=== PATIENT | male | born 1950 | race Caucasian/White ===

== ENCOUNTER → 2017-09-07 | Outpatient (CLI) | payer BC ==
[~2017-09-07] MED LIST: GADOBUTROL 10 ML VIAL IVP ONE
== END ==
LOC: FIMAGING 07:13
PROVIDERS: ATTEND Internal Medicine Infectious Disease
DX: M00.9 Pyogenic arthritis, unspecified (principal); M76.891 Other specified enthesopathies of right lower limb, excluding foot; M24.151 Other articular cartilage disorders, right hip
CPT/HCPCS: A9585

== ENCOUNTER → 2017-10-14 | Outpatient (CLI) | payer BC | LOC: FIMAGING 10:19 | PROVIDERS: ATTEND Orthopaedic Surgery | DX: M54.16 Radiculopathy, lumbar region (principal); M51.36 Other intervertebral disc degeneration, lumbar region ==

== ENCOUNTER 2017-11-12 14:01 | Day surgery (SDC) | payer BC ==
[2017-11-12] MEDS ORDERED: LIDOCAINE 1% 300 MG/30 ML SDV ONE (15:27)
[2017-11-12] MEDS ORDERED: TRIAMCINOLONE ACETONIDE 200 MG/5 ML MDV IM ONE (15:27)
== END 2017-11-12 16:00 | disposition home or self-care (01) ==
LOC: FIMAGING 14:01
PROVIDERS: ATTEND Orthopaedic Surgery
PROC: 3E0S33Z Introduction of Anti-inflammatory into Epidural Space, Percutaneous Approach (ICD-10-PCS; principal; 2017-11-12)
PROC: 3E0S3BZ Introduction of Anesthetic Agent into Epidural Space, Percutaneous Approach (ICD-10-PCS; principal; 2017-11-12)
DX: M54.16 Radiculopathy, lumbar region (principal)
CPT/HCPCS: J3301

== ENCOUNTER 2019-02-10 13:55 | Emergency (ER) | payer BC ==
[2019-02-10] MEDS ORDERED: NS 1,000 ML IV ONE (14:39)
[2019-02-10] MEDS ORDERED: HYDROmorphONE/DILAUDID 2 MG/ML INJ IVP ONE (14:39)
[2019-02-10] MEDS ORDERED: ONDANSETRON 4 MG/2 ML VIAL IVP ONE (14:39)
--- NOTE | 2019-02-10 14:45 | EDPHY ---
H & P Stated Complaint: Bilat groin pn yest AM, exac umb hernia, poss bowel obstr per PCP Time Seen by Provider: 02/10/19 14:35 HPI/ROS: CHIEF COMPLAINT: Abdominal pain and distension HISTORY OF PRESENT ILLNESS: The patient is a 68-year-old man who comes to the emergency department complaining of abdominal pain and distension that began yesterday. He has had gradually increasing pain and distention. He has a history of prostate cancer with radical prostatectomy several years ago. 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 He has not had a fever. He did vomit once yesterday. He states he has not been able to have a bowel movement but was able to force a small amount of stool out today around noon. No history of similar symptoms. He states that he does think he has been passing a small amount of gas. No history of liver renal disease. Severity: Moderate Modifying factors: None REVIEW OF SYSTEMS: Constitutional: denies: chills, fever, recent illness, recent injury EENTM: denies: blurred vision, double vision, nose congestion Respiratory: denies: cough, shortness of breath Cardiac: denies: chest pain, irregular heart rate, lightheadedness, palpitations Gastrointestinal/Abdominal: denies: abdominal pain, diarrhea, nausea, vomiting, blood streaked stools Genitourinary: See HPI Musculoskeletal: denies: joint pain, muscle pain Skin: denies: lesions, rash, jaundice, bruising Neurological: denies: headache, numbness, paresthesia, tingling, dizziness, weakness Hematologic/Lymphatic: denies: blood clots, easy bleeding, easy bruising Immunologic/allergic: denies: HIV/AIDS, transplant 10 systems reviewed and negative except as noted EXAM: GENERAL: Well-appearing, well-nourished and in no acute distress. HEAD: Atraumatic, normocephalic. EYES: Pupils equal round and reactive to light, extraocular movements intact, sclera anicteric, conjunctiva are normal. ENT: TMs normal, nares patent, oropharynx clear without exudates. Moist mucous membranes. NECK: Normal range of motion, supple without lymphadenopathy or JVD. LUNGS: Breath sounds clear to auscultation bilaterally and equal. No wheezes rales or rhonchi. HEART: Regular rate and rhythm without murmurs, rubs or gallops. ABDOMEN: Distended, umbilical hernia nontender. No erythema. BACK: No CVA tenderness, no spinal tenderness, step-offs or deformities EXTREMITIES: Normal range of motion, no pitting or edema. No clubbing or cyanosis. NEUROLOGICAL: Cranial nerves II through XII grossly intact. Normal speech, normal gait. 5/5 strength, normal movement in all extremities, normal sensation , normal reflexes PSYCH: Normal mood, normal affect. SKIN: Warm, dry, normal turgor, no visible rashes or lesions. Source: Patient - Personal History Current Tetanus/Diphtheria Vaccine: Unsure - Medical/Surgical History Hx Asthma: No Hx Chronic Respiratory Disease: No Hx Diabetes: No Hx Cardiac Disease: No Hx Renal Disease: No Hx Cirrhosis: No Hx Alcoholism: No Hx HIV/AIDS: No Hx Splenectomy or Spleen Trauma: No Other PMH: Juanita Cell cancer rt uttocks, strep infection in R hip with multiple I&D's, radical prostatectomy, CAD 2 stents, HTN - Family History Significant Family History: No pertinent family hx - Social History Smoking Status: Never smoked Alcohol Use: None Constitutional: Initial Vital Signs Temperature (C) 37.1 C 02/10/19 14:10 Heart Rate 63 02/10/19 14:10 Respiratory Rate 18 02/10/19 14:10 Blood Pressure 131/62 H 02/10/19 14:10 O2 Sat (%) 95 02/10/19 14:10 O2 Delivery Mode Room Air Allergies/Adverse Reactions: amlodipine [Amlodipine] Allergy (Intermediate, Verified 02/10/19 14:10) MUSCLE WEAKNESS ketorolac tromethamine [From Toradol] Allergy (Intermediate, Verified 02/10/19 14:10) Anxiety, Heavy Diaphoresis tramadol Allergy (Intermediate, Verified 02/10/19 14:10) Anxiety aspirin Allergy (Mild, Verified 02/10/19 14:10) FLUSH Home Medications: Medication Instructions Recorded Acetaminophen [Mapap] 1,000 mg PO DAILY PRN 07/27/15 Cephalexin [Keflex (*)] 500 mg PO DAILY 07/27/15 Multivitamins [Multivitamin (*)] 1 each PO DAILY 07/27/15 Atorvastatin Calcium [Lipitor 40 80 mg PO DAILY #30 tab 07/29/15 mg (*)] Metoprolol Succinate Xr [Toprol Xl 12.5 mg PO DAILY #30 tab.sr 07/29/15 25 mg (*)] Nitroglycerin [Nitrostat 0.4 mg 0.4 mg SL PRN PRN #1 btl 07/29/15 (*)] Aspirin EC [Aspirin EC 325 mg (*)] 81 mg PO DAILY 11/08/17 Losartan Potassium 25 mg PO DAILY 11/08/17 Amoxicillin/Clavulanate Pot 875 mg PO BID #14 tab 02/10/19 [Augmentin 875Mg] Medical Decision Making - Diagnostics Imaging Results: Imaging Impressions Abdomen CT 02/10/19 14:40 Impression: 1. Sigmoid diverticulitis. No abscess or perforation. 2. No bowel obstruction or ascites. 3. Paraumbilical hernia containing only fat. 4. Resolved right groin lymph node since 2012. No evidence of recurrent [place] cell tumor. 5. 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 Findings discussed with Emergency Department physician, Perfecto Dietrich M.D., on February 10, 2019 at 1602. Imaging: Discussed imaging studies w/ score caller Radiologist ED Course/Re-evaluation: I discussed the CT findings. Will treat with Augmentin. Patient is happy with this and relieved. He is afebrile. The white count slightly elevated. Will follow-up with surgery and with his primary doctor. Differential Diagnosis: Partial list of the Differential diagnosis considered include but were not limited to; diverticulitis, obstruction, hernia and although unlikely based on the history and physical exam, I also considered ischemia, dissection, UTI, kidney stone. I discussed these differential diagnoses and the plan with the patient as well as the usual and expected course. The patient understands that the diagnosis is provisional and that in medicine we are not always correct and that further workup is often warranted. Usual and customary warnings were given. All of the patient's questions were answered. The patient was instructed to return to the emergency department should the symptoms at all worsen or return, otherwise to followup with the physician as we discussed. - Data Points Laboratory Results: Laboratory Results 02/10/19 14:35 02/10/19 14:35 02/10/19 02/10/19 02/10/19 14:55 14:45 14:35 WBC RBC Hgb POC Hgb 16.7 gm/dL gm/dL (13.7-17.5) Hct POC Hct 49 % % (40-51) MCV MCH MCHC RDW Plt Count MPV Neut % (Auto) Lymph % (Auto) [place] % (Auto) Eos % (Auto) Baso % (Auto) Nucleat RBC Rel Count Absolute Neuts (auto) Absolute Lymphs (auto) Absolute Monos (auto) Absolute Eos (auto) Absolute Basos (auto) Absolute Nucleated RBC Immature Gran % Immature Gran # POC Sodium 141 mEq/L mEq/L (135-145) Sodium 137 mEq/L mEq/L (135-145) POC Potassium 3.5 mEq/L mEq/L (3.3-5.0) Potassium 3.7 mEq/L mEq/L (3.5-5.2) POC Chloride 100 mEq/L mEq/L (97-110) Chloride 102 mEq/L mEq/L (97-110) Carbon Dioxide 25 mEq/l mEq/l (22-31) POC Total CO2 24 mEq/L mEq/L (22-31) Anion Gap 10 mEq/L mEq/L (6-14) POC BUN 21 mg/dL mg/dL (7-23) BUN 21 mg/dL mg/dL (7-23) Creatinine 0.7 mg/dL mg/dL (0.7-1.3) POC Creatinine 0.7 mg/dL mg/dL (0.7-1.3) Estimated GFR > 60 Glucose 116 mg/dL H mg/dL (70-100) POC Glucose 119 mg/dL H mg/dL (70-100) Calcium 9.3 mg/dL mg/dL (8.5-10.4) Total Bilirubin 1.2 mg/dL mg/dL (0.1-1.4) Conjugated Bilirubin 0.3 mg/dL mg/dL (0.0-0.5) Unconjugated Bilirubin 0.9 mg/dL mg/dL (0.0-1.1) AST 37 IU/L IU/L (17-59) ALT 36 IU/L IU/L (21-72) Alkaline Phosphatase 113 IU/L IU/L (38-126) Total Protein 7.7 g/dL g/dL (6.3-8.2) Albumin 4.4 g/dL g/dL (3.5-5.0) Lipase 174 IU/L IU/L (23-300) Urine Color YELLOW Urine Appearance HAZY Urine pH 5.0 (5.0-7.5) Ur Specific [place] 1.026 (1.002-1.030) Urine Protein NEGATIVE (NEGATIVE) Urine Ketones NEGATIVE (NEGATIVE) Urine Blood NEGATIVE (NEGATIVE) Urine Nitrate NEGATIVE (NEGATIVE) Urine Bilirubin NEGATIVE (NEGATIVE) Urine Urobilinogen NEGATIVE EU EU (0.2-1.0) Ur Leukocyte Esterase NEGATIVE (NEGATIVE) Urine RBC 1-3 /hpf /hpf (0-3) Urine WBC 1-3 /hpf /hpf (0-3) Ur Epithelial Cells NONE SEEN /lpf /lpf (NONE-1+) Urine Mucus 1+ /lpf /lpf (NONE-1+) Urine Glucose NEGATIVE (NEGATIVE) 02/10/19 14:35 WBC 13.63 10^3/uL H 10^3/uL (3.80-9.50) RBC 5.42 10^6/uL 10^6/uL (4.40-6.38) Hgb 15.7 g/dL g/dL (13.7-17.5) POC Hgb Hct 46.1 % % (40.0-51.0) POC Hct MCV 85.1 fL fL (81.5-99.8) MCH 29.0 pg pg (27.9-34.1) MCHC 34.1 g/dL g/dL (32.4-36.7) RDW 14.0 % % (11.5-15.2) Plt Count 213 10^3/uL 10^3/uL (150-400) MPV 10.1 fL fL (8.7-11.7) Neut % (Auto) 80.4 % H % (39.3-74.2) Lymph % (Auto) 9.0 % L % (15.0-45.0) [place] % (Auto) 9.9 % % (4.5-13.0) Eos % (Auto) 0.1 % L % (0.6-7.6) Baso % (Auto) 0.2 % L % (0.3-1.7) Nucleat RBC Rel Count 0.0 % % (0.0-0.2) Absolute Neuts (auto) 10.94 10^3/uL H 10^3/uL (1.70-6.50) Absolute Lymphs (auto) 1.23 10^3/uL 10^3/uL (1.00-3.00) Absolute Monos (auto) 1.35 10^3/uL H 10^3/uL (0.30-0.80) Absolute Eos (auto) 0.02 10^3/uL L 10^3/uL (0.03-0.40) Absolute Basos (auto) 0.03 10^3/uL 10^3/uL (0.02-0.10) Absolute Nucleated RBC 0.00 10^3/uL 10^3/uL (0-0.01) Immature Gran % 0.4 % % (0.0-1.1) Immature Gran # 0.06 10^3/uL 10^3/uL (0.00-0.10) POC Sodium Sodium POC Potassium Potassium POC Chloride Chloride Carbon Dioxide POC Total CO2 Anion Gap POC BUN BUN Creatinine POC Creatinine Estimated GFR Glucose POC Glucose Calcium Total Bilirubin Conjugated Bilirubin Unconjugated Bilirubin AST ALT Alkaline Phosphatase Total Protein Albumin Lipase Urine Color Urine Appearance Urine pH Ur Specific [place] Urine Protein Urine Ketones Urine Blood Urine Nitrate Urine Bilirubin Urine Urobilinogen Ur Leukocyte Esterase Urine RBC Urine WBC Ur Epithelial Cells Urine Mucus Urine Glucose Medications Given: Discontinued Medications Amoxicillin/Clavulanate Potassium (Augmentin 875mg) 875 mg PO EDNOW ONE PRN Reason: Protocol Stop: 02/10/19 16:10 Last Admin: 02/10/19 16:27 Dose: 875 mg Hydromorphone HCl (Dilaudid) 0.5 mg IVP EDNOW ONE Stop: 02/10/19 14:40 Last Admin: 02/10/19 14:48 Dose: 0.5 mg Sodium Chloride (Ns) 1,000 mls @ 0 mls/hr IV EDNOW ONE; Wide Open PRN Reason: Protocol Stop: 02/10/19 14:40 Last Admin: 02/10/19 14:48 Dose: 1,000 mls Ondansetron HCl (Zofran) 4 mg IVP EDNOW ONE Stop: 02/10/19 14:40 Last Admin: 02/10/19 14:48 Dose: 4 mg Point of Care Test Results: Chemistry 02/10/19 14:45 POC Sodium 141 mEq/L mEq/L (135-145) POC Potassium 3.5 mEq/L mEq/L (3.3-5.0) POC Chloride 100 mEq/L mEq/L (97-110) POC Total CO2 24 mEq/L mEq/L (22-31) POC BUN 21 mg/dL mg/dL (7-23) POC Creatinine 0.7 mg/dL mg/dL (0.7-1.3) POC Glucose 119 mg/dL H mg/dL (70-100) ISTAT H&H 02/10/19 14:45 POC Hgb 16.7 gm/dL gm/dL (13.7-17.5) POC Hct 49 % % (40-51) Departure - Departure Disposition: Home, Routine, Self-Care Clinical Impression: Diverticulitis large intestine Qualifiers: Diverticulitis bleeding: without bleeding Diverticulitis complication: unspecified complication status Qualified Code(s): K57.32 - Diverticulitis of large intestine without perforation or abscess without bleeding Condition: Fair Instructions: Diverticulitis (ED) Referrals: João Pandey MD [Primary Care Provider] - 2-3 days, if not improved Ramiro Chin MD [Medical Doctor] - 5-7 days, if not improved Prescriptions: Amoxicillin/Clavulanate Pot [Augmentin 875Mg] 875 mg PO BID #14 tab
[2019-02-10 14:51] LABS: PLATELET COUNT 213 10^3/uL (150-400)
[2019-02-10] MEDS ORDERED: IOPAMIDOL (ISOVUE-300) 100 ML BTL ONE (14:52)
[2019-02-10] MEDS ORDERED: AMOXICILLIN/CLAVULANATE POT 875/125 MG TAB PO ONE (16:09)
[2019-02-10 16:30] VITALS: BP 134/73
== END 2019-02-10 16:34 | disposition home or self-care (01) ==
DX: K57.32 Diverticulitis of large intestine without perforation or abscess without bleeding (principal); K42.9 Umbilical hernia without obstruction or gangrene; E86.9 Volume depletion, unspecified; I10 Essential (primary) hypertension; Z95.5 Presence of coronary angioplasty implant and graft
CPT/HCPCS: 82435-PO; 82565-PO; 82947-PO; 84132-PO; 84295-PO; 84520-PO; 85014-ER; 96374; J1170; J2405; Q9967